=== PATIENT | female | born 1965 | race Two or more races ===

== ENCOUNTER → 2018-10-11 | Outpatient (CLI) | payer BC ==
--- NOTE | 2018-10-13 17:30 | US ---
EXAMINATION TYPE: US abdomen complete DATE OF EXAM: 10/11/2018 COMPARISON: NONE CLINICAL HISTORY: RUQ Pain R10.11 x 3 months with nausea and vomiting EXAM MEASUREMENTS: Liver Length: 19.1 cm Gallbladder Wall: 0.1 cm CBD: 0.5 cm Spleen: 8.8 cm Right Kidney: 11.0 x 4.4 x 4.6 cm Left Kidney: 10.8 x 4.0 x 4.6 cm Patient of large body habitus. Pancreas: Limited by overlying bowel gas Liver: Increased attenuation, decreased visualization of vessels suggestive of fatty infiltrate, hep atomegaly Gallbladder: cholelithiasis, no wall thickening, ARMANDO sign Evidence for sonographic Mireles's sign: no CBD: wnl Spleen: wnl Right Kidney: limited visualization due to overlying bowel gas Left Kidney: wnl Upper IVC: wnl Abd Aorta: wnl IMPRESSION: 1. Cholelithiasis. No biliary obstruction. 2. Increased attenuation of liver can be seen with fatty infiltration, hepatitis or hepatocellular di sease. Liver measures 19 cm and is enlarged.
== END | disposition home or self-care (01) ==
LOC: RADUSMAIN 15:55
PROVIDERS: ATTEND Surgery
DX: K80.20 Calculus of gallbladder without cholecystitis without obstruction (principal); R16.0 Hepatomegaly, not elsewhere classified
CPT/HCPCS: 76700

== ENCOUNTER → 2018-10-17 | Outpatient (CLI) | payer BC ==
[2018-10-17 11:07] LABS: Basophils # (A) 0.1 k/uL (0-0.2); Basophils % (A) 1 %; Eosinophils # (A) 0.2 k/uL (0-0.7); Eosinophils % (A) 3 %; HGB 13.1 gm/dL (11.4-16.0); Lymphocytes % (A) 36 %; MCH 28.5 pg (25.0-35.0); MCHC 32.8 g/dL (31.0-37.0); MCV 86.9 fL (80.0-100.0); Monocytes # (A) 0.3 k/uL (0-1.0); Monocytes % (A) 4 %; Neutrophils # (A) 4.5 k/uL (1.3-7.7); Neutrophils % (A) 55 %; Platelet Count 367 k/uL (150-450); RDW 12.6 % (11.5-15.5); WBC 8.2 k/uL (3.8-10.6)
[2018-10-17 11:21] LABS: INR 0.9 (<1.2); Partial Thromboplastin Time 26.9 sec (22.0-30.0); Prothrombin Time 9.6 sec (9.0-12.0)
[2018-10-17 16:33] LABS: Albumin 4.5 g/dL (3.80-4.90); Albumin/Globulin Ratio 1.8 (1.20-2.10); Anion Gap 10.9 mmol/L (4.00-12.00); Calcium 9.7 mg/dL (8.7-10.3); Carbon Dioxide 24.1 mmol/L (21.6-31.8); Globulin 2.5 g/dL (2.1-3.7); Potassium 4.5 mmol/L (3.5-5.5); Total Bilirubin 0.5 mg/dL (0.3-1.2)
== END | disposition home or self-care (01) ==
LOC: LABWHC1 09:41
PROVIDERS: ATTEND Surgery
DX: K81.9 Cholecystitis, unspecified (principal)
CPT/HCPCS: 36415; 80053; 85025; 85610; 85730

== ENCOUNTER 2018-10-23 10:41 | Day surgery (SDC) | payer BC ==
[2018-10-18 10:03] VITALS: BMI 33.5
[~2018-10-23 10:41] MED LIST: DEXAMETHASONE SOD PHOSPHATE 10 MG/ML 1 ML VIAL IV ONE; HEPARIN SODIUM,PORCINE 5,000 UNIT/ML 1 ML VIAL SQ ONE; LACTATED RINGERS 1,000 ML IV SCH; MIDAZOLAM 2 MG/2 ML VIAL IV PRN; SCOPOLAMINE 1.5MG/72HR PATCH TRANSDERM ONE; ceFAZolin IN SWFI 2 GM/20 ML SYRINGE IVP ONE
[2018-10-23 11:26] VITALS: RESP 16
[2018-10-23] MEDS: ONDANSETRON 4 MG/2 ML VIAL IVP ONE ×2 (11:43→15:21)
[2018-10-23] MEDS ORDERED: LIDOCAINE 1% 20 ML VIAL (10MG/ML) FOR IV START INTRADERMA ONE (11:43)
[2018-10-23] MEDS ORDERED: GLYCOPYRROLATE 0.2 MG/ML 2 ML VIAL ONE (13:01)
[2018-10-23] MEDS ORDERED: KETOROLAC 30 MG/ML 1 ML VIAL ONE (13:01)
[2018-10-23] MEDS ORDERED: NEOSTIGMINE 1 MG/ML 10 ML VIAL ONE (13:01)
[2018-10-23] MEDS ORDERED: ROCURONIUM BROMIDE 10 MG/ML 10 ML VIAL IV ONE (13:01)
[2018-10-23] MEDS ORDERED: PROPOFOL 10 MG/ML 20 ML VIAL IV ONE (13:01)
[2018-10-23] MEDS ORDERED: LIDOCAINE 1% INJ 10MG/ML (20 ML MDV) ONE (13:01)
[2018-10-23] MEDS ORDERED: fentaNYL (PF) 50 MCG/ML 2 ML AMP ONE (13:01)
[2018-10-23] MEDS ORDERED: MIDAZOLAM 2 MG/2 ML VIAL ONE (13:01)
[2018-10-23] MEDS ORDERED: BUPIVACAIN-EPI 0.25%-1:200,000 30 ML VIAL SQ ONE (13:40)
[2018-10-23] MEDS ORDERED: LACTATED RINGERS 1,000 ML IV ONE (14:14)
[2018-10-23 14:28] VITALS: TEMP 97.2
[2018-10-23] MEDS ORDERED: NALOXONE 0.4 MG/ML 1 ML VIAL IV PRN (14:33)
[2018-10-23] MEDS ORDERED: traMADol 50 MG TAB PO PRN (14:33)
[2018-10-23] MEDS: HYDROmorphone 0.5 MG/0.5 ML SYRINGE IVP PRN ×2 (14:37→14:51)
[2018-10-23] MEDS ORDERED: diphenhydrAMINE 50 MG/ML 1 ML VIAL IVP ONE (14:41)
--- NOTE | 2018-10-23 14:42 | P.OP ---
Date of Procedure: 10/23/18 Procedure(s) Performed: PREOPERATIVE DIAGNOSIS: Chronic cholecystitis POSTOPERATIVE DIAGNOSIS: Same PROCEDURE: Laparoscopic cholecystectomy SURGEON: Majo EBL: Minimal see anesthesia record ANESTHESIA: Gen. COMPLICATIONS: None OPERATIVE PROCEDURE: The patient was brought and placed on the operating room table in the supine position. The patient was placed under general anesthesia at that time. The abdomen was prepped and draped in the usual sterile fashion. A small vertical infraumbilical incision was made. The fascia was grasped with the Miguel forceps. The fascia was retracted anteriorly. The Veress needle was advanced into the peritoneal cavity. The saline drop test was normal. Insufflation took place up to 15 mmHg. A 5 mm optical trocar was advanced and the peritoneal cavity. 2 additional 5 mm trochars were placed in the right upper quadrant under direct visualization. A 12 mm trocar was advanced into the epigastric incision site. The gallbladder was retracted superiorly and laterally. The peritoneum overlying the infundibulum was bluntly dissected. The patient's cystic duct was visualized. The junction between the cystic duct common and hepatic duct was identified. The cystic duct was then divided after placement of 3 12 mm clips on the patient's side and one on the specimen side. The cystic artery was identified and clipped as well. A small vessel was seen along the gallbladder fossa and clipped as well. The gallbladder was then removed from the liver bed using electrocautery. The gallbladder was then removed from the epigastric trocar site with an Endo Catch bag. The gallbladder fossa was irrigated with saline. There was no evidence of any bleeding or biliary drainage seen. The trochars were then removed. The fascia at the 12 millimeter site was closed using a Thomas- Doug 0 Vicryl stitch. The skin at all 4 sites was closed using a 4-0 Monocryl stitch. Skin glue was utilized on the incision sites. At the end of this procedure the sponge and needle counts were correct. DISPOSITION: Stable to the recovery room
[2018-10-23 16:06] VITALS: PULSE 64
[2018-10-23 17:00] VITALS: BP 167/81
== END 2018-10-23 17:34 | disposition home or self-care (01) ==
LOC: OR 10:41
PROVIDERS: ATTEND Surgery
DX: K80.10 Calculus of gallbladder with chronic cholecystitis without obstruction (principal); M19.90 Unspecified osteoarthritis, unspecified site; Z79.1 Long term (current) use of non-steroidal anti-inflammatories (NSAID)
CPT/HCPCS: 47562; 88304; J2250; J1200; J1644; J1100; J2710; J2405; J2001; J3010; J1885; J2704; J1170

== ENCOUNTER 2019-01-07 09:23 | Day surgery (SDC) | payer BC ==
[2019-01-03 15:39] VITALS: BMI 33.6
[~2019-01-07 09:23] MED LIST changes: -DEXAMETHASONE SOD PHOSPHATE 10 MG/ML 1 ML VIAL IV ONE; -HEPARIN SODIUM,PORCINE 5,000 UNIT/ML 1 ML VIAL SQ ONE; -MIDAZOLAM 2 MG/2 ML VIAL IV PRN; -SCOPOLAMINE 1.5MG/72HR PATCH TRANSDERM ONE; -ceFAZolin IN SWFI 2 GM/20 ML SYRINGE IVP ONE
[2019-01-07 10:01] VITALS: RESP 18; TEMP 97.8
[2019-01-07] MEDS ORDERED: LIDOCAINE 1% 20 ML VIAL (10MG/ML) FOR IV START INTRADERMA ONE (10:15)
[2019-01-07] MEDS ORDERED: PROPOFOL 10 MG/ML 20 ML VIAL IV ONE (11:04)
--- NOTE | 2019-01-07 11:41 | P.PCN ---
Date of Procedure: 01/07/19 Procedure(s) Performed: Procedure: Total colonoscopy. Preoperative diagnosis: Screening for neoplasia. Postoperative diagnosis: Diverticulosis with no evidence of acute diverticulitis, strictures, polyps or cancer. Preparation: HalfLytely prep. Sedation: Was provided by anesthesia. Brief clinical history: The patient is a 53-year-old female who is scheduled for this evaluation for screening for neoplasia age being her risk factor. She has no family history of colon cancer. No significant bowel issues, bleeding or anemia. Procedure: With the patient on her left lateral decubitus position and after informed consent and adequate sedation, the perianal area was inspected and it did not show any fissures or fistulas. He were no masses felt on digital rectal examination. The Olympus CFH 190L video colonoscope was then inserted in the rectum in the usual fashion and advanced to the cecum. There were multiple diverticular orifices noted on both the left and right side with no evidence of acute diverticulitis or strictures. The mucosa appeared healthy. No polyps or tumors were seen. I retroflexed the endoscope in the rectum before the endoscope was withdrawn. Low-grade internal hemorrhoids were noted with no evidence of bleeding. The patient tolerated the procedure well. Plan: The patient was reassured. Discussed dietary measures and local care for hemorrhoids. She will follow-up with you as planned and I recommended repeat exam in 10 years.
[2019-01-07 11:50] VITALS: BP 150/83; PULSE 71
== END 2019-01-07 12:06 | disposition home or self-care (01) ==
LOC: ORWHC2ENDO 09:23
DX: Z12.11 Encounter for screening for malignant neoplasm of colon (principal); K64.8 Other hemorrhoids; K57.30 Diverticulosis of large intestine without perforation or abscess without bleeding; Z79.1 Long term (current) use of non-steroidal anti-inflammatories (NSAID)
CPT/HCPCS: J2704; G0121

== ENCOUNTER → 2019-03-31 | Outpatient (CLI) | payer BC ==
[2019-03-31 07:36] LABS: INR 0.9 (<1.2); Prothrombin Time 9.6 sec (9.0-12.0)
[2019-03-31 07:39] LABS: HCT 36.5 % (34.0-46.0); HGB 12.4 gm/dL (11.4-16.0); MCH 29.4 pg (25.0-35.0); MCHC 34.1 g/dL (31.0-37.0); MCV 86.3 fL (80.0-100.0); Mean Platelet Volume 7.5; Platelet Count 309 k/uL (150-450); RBC 4.23 m/uL (3.80-5.40); RDW 14.5 % (11.5-15.5); WBC 8.2 k/uL (3.8-10.6)
[2019-03-31 11:02] LABS: Albumin 4.3 g/dL (3.80-4.90); Albumin/Globulin Ratio 1.95 (1.60-3.17); Anion Gap 9.6 mmol/L (4.00-12.00); Calcium 9.5 mg/dL (8.7-10.3); Carbon Dioxide 27.4 mmol/L (21.6-31.8); Globulin 2.2 g/dL (1.6-3.3); LDL Cholesterol,Calculated 99.4 mg/dL (0.0-131.0); Potassium 4.3 mmol/L (3.5-5.5); Total Bilirubin 0.5 mg/dL (0.2-1.2); Total Protein 6.5 g/dL (6.2-8.2); VLDL Calculation 41.6 mg/dL (5.00-40.00)
[2019-03-31 11:10] LABS: T4, Free (Free Thyroxine) 0.9 ng/dL (0.80-1.80)
[2019-03-31 15:12] LABS: Eosinophils # (M) 0.33 k/uL (0-0.7); Lymphocytes # (M) 3.61 k/uL (1.0-4.8); Monocytes # (M) 0.33 k/uL (0-1.0); Neutrophils # (M) 3.94 k/uL (1.3-7.7); Neutrophils % (M) 48 %; Nucleated Red Blood Cells 0 /100 WBC (0-0); Total Cells Counted 100
== END | disposition home or self-care (01) ==
LOC: LABWHC1 06:57
PROVIDERS: ATTEND Family Medicine
DX: Z01.812 Encounter for preprocedural laboratory examination (principal)
CPT/HCPCS: 36415; 80053; 80061; 84439; 84443; 85027; 85610; 85730

== ENCOUNTER → 2019-04-02 | Outpatient (CLI) | payer BC | END | disposition home or self-care (01) | LOC: LABPAT 11:45 | PROVIDERS: ATTEND Orthopaedic Surgery | DX: Z01.812 Encounter for preprocedural laboratory examination (principal) | CPT/HCPCS: 87070 ==

== ENCOUNTER 2019-04-07 13:15 | Inpatient (IN) | payer BC ==
--- NOTE | 2019-04-06 21:22 | HP ---
HISTORY AND PHYSICAL Surgery is 04/07/2019. Ashlie Fletcher is a 53-year-old patient seen with symptomatic right knee osteoarthritis. We discussed treatment options with her. She elected to proceed with a right total knee arthroplasty. Consent regarding the procedure was obtained. Medical clearance was provided by Dr. Nails. PAST MEDICAL HISTORY: Noncontributory. PAST SURGICAL HISTORY: Noncontributory. DAILY MEDICATIONS: None. ALLERGIES: None reported. SOCIAL HISTORY: She denies current tobacco use. PHYSICAL EXAMINATION: Evaluation of the right knee: Range of motion 0 to 120 degrees. Tenderness along the medial joint line. Crepitus medial and patellofemoral compartments. Pain with patellofemoral compression. Ligaments stable. Hip rotation without pain. Distal neurovascular exam is intact. RADIOGRAPHS: Right knee radiographs reveal severe osteoarthritic changes. IMPRESSION: Symptomatic right knee osteoarthritis. PLAN: Right total knee arthroplasty. MMODL / IJN: [id number] /
[~2019-04-07 13:15] MED LIST changes: +ACETAMINOPHEN TAB 500 MG TAB PO ONE; -LACTATED RINGERS 1,000 ML IV SCH; +MELOXICAM 7.5 MG TAB PO ONE; +TRANEXAMIC ACID 1,000 MG in SODIUM CHLORIDE 0.9% 100 ML IVPB ONE; +ceFAZolin IN SWFI 2 GM/20 ML SYRINGE IVP ONE
[2019-04-07] MEDS ORDERED: DEXAMETHASONE SOD PHOS (MDV) 100 MG/10 ML VIAL IVP ONE (14:30)
[2019-04-07] MEDS ORDERED: ONDANSETRON 4 MG/2 ML VIAL IVP ONE ×2 (14:30→18:26)
[2019-04-07] MEDS ORDERED: LACTATED RINGERS 1,000 ML IV ONE ×3 (14:30→16:58)
[2019-04-07] MEDS ORDERED: MIDAZOLAM (PF) 2 MG/2 ML VIAL IVP ONE (14:44)
[2019-04-07] MEDS ORDERED: ROPIVACAINE 1,100 MG, SODIUM CHLORIDE 0.9% 500 ML 330 ML MISCELLANE PRN ×2 (15:05)
[2019-04-07] MEDS ORDERED: ROPIVACAINE 246.25 MG, EPINEPHrine 0.5 MG, KETOROLAC 30 MG, cloNIDine HCL/PF 80 MCG, WA... MISCELLANE ONE ×5 (15:06)
[2019-04-07] MEDS ORDERED: SODIUM CHLORIDE 0.9% 100 ML BAG ONE (15:30)
[2019-04-07] MEDS ORDERED: TRANEXAMIC ACID 1,000 MG/10 ML VIAL ONE (15:30)
[2019-04-07] MEDS ORDERED: PROPOFOL 10 MG/ML 20 ML VIAL IV ONE (15:30)
[2019-04-07] MEDS ORDERED: fentaNYL (PF) 50 MCG/ML 2 ML AMP ONE (15:30)
[2019-04-07] MEDS ORDERED: MIDAZOLAM 2 MG/2 ML VIAL ONE (15:30)
[2019-04-07] MEDS ORDERED: ceFAZolin 3,000 MG in SODIUM CHLORIDE 0.9% IRRIGATIO 3,000 ML IRRIGATION ONE (16:09)
[2019-04-07] MEDS ORDERED: HYDROmorphone 0.5 MG/0.5 ML SYRINGE IVP PRN ×2 (17:47)
[2019-04-07] MEDS ORDERED: NALOXONE 0.4 MG/ML 1 ML VIAL IV PRN (17:47)
[2019-04-07] MEDS ORDERED: ONDANSETRON 4 MG/2 ML VIAL IVP PRN (17:47)
[2019-04-07] MEDS ORDERED: HYDROcodone/APAP 5-325MG 1 EACH TAB PO PRN (17:47)
--- NOTE | 2019-04-07 17:47 | P.OP ---
Date of Procedure: 04/07/19 Preoperative Diagnosis: Right knee osteoarthritis Postoperative Diagnosis: Right knee osteoarthritis Procedure(s) Performed: Right total knee arthroplasty Implants: 1. Microport evolution MP size 4 right cemented femur 2. Microport evolution size 4 right cemented tibial baseplate 3. Microport evolution 14 mm MP polyethylene tibial insert 4. Microport advance all polyethylene 32 mm cemented patella Anesthesia: regional (Abductor canal catheter), local, spinal Surgeon: Juan Delarosa Power Line Lineman #1: Darius Tsai Estimated Blood Loss (ml): 50 Pathology: other (Bone) Condition: stable Disposition: PACU Indications for Procedure: 53-year-old patient seen with symptomatic right knee osteoarthritis. After having treatment options discussed, she elected to proceed with total knee arthroplasty. Operative Findings: See description of procedure Description of Procedure: Patient was taken to the operative suite after having an adductor canal catheter placed by the department of anesthesia for postoperative pain management. Patient underwent a spinal anesthetic by the department of anesthesia. Patient was given preoperative IV intake antibiotics and TXA. A well-padded tourniquet was placed about the right lower extremity. The lower extremity was then prepped and draped in the normal sterile orthopedic fashion. The extremity was elevated, a tourniquet was insufflated to 300. A standard anterior incision was made sharply through skin. Dissection was taken down through the subcutaneous soft tissues down to the extensor mechanism. A medial arthrotomy was performed, patella was everted and knee was flexed. There was advanced osteoarthritis noted. I introduced my distal intramedullary femoral drill. I then introduced the distal femoral cutting jig. Dagoberto MAYA secured the cutting jig with 2 pins. I held retractors in position while Dagoberto MAYA performed the distal femoral resection through the guide area we now removed her distal femoral cutting guide. We now placed our 4-in-1 femoral cutting block and positioned and it was secured with 2 pins by Dagoberto MAYA while I held the block in position. The distal femoral finishing was now completed. A proximal tibial cutting guide was positioned. I held the guide in the appropriate position with both hands well Dagoberto MAYA inserted stabilizing pins into the guide. Proximal tibial cut was made. We now placed a trial femoral component into position, along with an appropriate size tibial tray and insert. We now took the knee through range of motion and had full extension good flexion and good overall soft tissue balance noted. The patella was everted and stabilized with 2 towel clips held by Dagoberto MAYA while I performed a flush with patellar quad tendon utilizing a fresh sawblade. We templated the patella, appropriate drill holes were made. An appropriate trial patella was positioned, knee was taken through full range of motion with the patella tracking very nicely. The trial patella was removed. Drill holes were made through the femoral component. All trial components were removed after marking off the appropriate rotation of the tibia. Retractors were now positioned along the proximal tibia. An appropriate keel punch was made with the appropriate size tibial guide by myself on Dagoberto MAYA assisted by holding retractors. At this point appropriate size implants were chosen and opened. The joint was irrigated copiously with pulse lavage mechanical irrigation. The posterior capsule was infiltrated with local analgesic. The wound was irrigated with pulse lavage mechanical irrigation. We mixed antibiotic methylmethacrylate. We placed the knee into flexion. We placed multiple retractors assisted by Dagoberto MAYA to expose the proximal tibia. Once the methyl methacrylate was ready, the tibial component was cemented into place removing any excess methylmethacrylate form by both myself and Dagoberto MAYA. The femoral component was cemented into place removing the removing any excess methylmethacrylate performed by both myself and Dagoberto MAYA. We then inserted the appropriate size polyethylene tibial insert. We made sure that it was locked into position. We took the knee into full extension, and then back in a flexion making sure we had removed any excess methylmethacrylate. The patellar component was then cemented down and secured with clamp. Excess methylmethacrylate removed. We kept the knee in full extension, patellar clamp in position until methylmethacrylate had hardened. Once it had hardened the patellar clamp was removed. The knee was taken through full range of motion. The patella tracked nicely. There was good soft tissue balancing. The tourniquet was now released. Additional hemostasis was achieved via electrocautery. A second gram of TXA was given. The wound again was irrigated with pulse lavage mechanical irrigation. The superficial soft tissues were infiltrated local analgesic. The extensor mechanism was repaired with Vicryl. We checked the repair with range of motion and it was stable. The subcutaneous soft tissues were repaired with Vicryl in layers. The skin was ap proximated with pernio/Dermabond. Sterile dressings were applied followed by loose web roll and Kevyn bandage. The patient was transferred to a bed, and taken to recovery in stable and satisfactory condition. Dagoberto MAYA assisted with this complex procedure.
[2019-04-07] MEDS: HYDROmorphone 1 MG/ML 1 ML SYRINGE IVP ONE ×2 (18:08→18:14)
[2019-04-07] MEDS ORDERED: diphenhydrAMINE 50 MG/ML 1 ML VIAL IVP ONE (18:20)
[2019-04-07 19:03] LABS: Glucose,Whole Blood 200 mg/dL (75-99)
[2019-04-07] MEDS: HYDROcodone/APAP 7.5-325MG 1 EACH TAB PO PRN (20:03)
[2019-04-07 20:20] VITALS: BMI 38.9
--- NOTE | 2019-04-07 20:23 | XR ---
PROCEDURE: XR knee limited RT - 2 views DATE AND TIME: 04/07/2019 6:46 PM CLINICAL INDICATION: PHH; Evaluation for Postop abnormality and alignment TECHNIQUE: Department protocol COMPARISON: None FINDINGS: TKR appears in anatomic position and alignment. Postprocedure changes appreciated. No unexp ected findings. IMPRESSION: Postoperative 2 views.
--- NOTE | 2019-04-07 20:55 | P.ANPRN ---
Procedure Note - Anesthesia - Nerve Block Performed Right Adductor Canal Infusion Time Out Performed: Yes Date of Procedure: 04/07/19 Procedure Start Time: 14:44 Procedure Stop Time: 14:59 Location of Patient Procedure: PreOp Indication: Acute Post-Operative Pain, Requested by physician Sedation Type: Sedate with meaningful contact maintained Preparation: Sterile Prep, Sterile Dressing Position: Supine Catheter: Indwelling Needle Types: Pajunk Needle Gauge: 21 Technique: Ultrasound Injectate: 0.5% Ropivacaine (see comment for volume) (ropi .5% 20cc) Blood Aspirated: No Pain Paresthesia on Injection Noted: No Resistance on Injection: Normal Events: Uneventful and Well Tolerated
[2019-04-07] MEDS: LACTATED RINGERS 1,000 ML IV SCH (21:50)
[2019-04-07] MEDS: HYDROmorphone 1 MG/ML 1 ML SYRINGE IVP PRN (21:58)
[2019-04-07] MEDS: SENNOSIDES-DOCUSATE SODIUM 1 EACH TAB PO SCH (22:08)
[2019-04-07] MEDS: ceFAZolin IN SWFI 2 GM/20 ML SYRINGE IVP SCH (23:43)
[2019-04-08] MEDS: ENOXAPARIN 30 MG/0.3 ML SYRINGE SQ SCH ×2 (03:38→17:31)
[2019-04-08] MEDS: LACTATED RINGERS 1,000 ML IV SCH ×3 (06:08→23:22)
--- NOTE | 2019-04-08 07:02 | P.PN ---
Progress Note - Text 04/08 640am 53 yr old female s/p tkr by Dr Delarosa. she has on-q pump for postop pain control,she turned down the rate t0 4cc/hr because her foot was numb and she had difficulty walking. her pain score was 10 this morning,i asked her to increase the rate.
[2019-04-08] MEDS: HYDROcodone/APAP 7.5-325MG 1 EACH TAB PO PRN ×3 (07:33→20:50)
[2019-04-08] MEDS: MELOXICAM 7.5 MG TAB PO SCH (07:33)
[2019-04-08] MEDS: ceFAZolin IN SWFI 2 GM/20 ML SYRINGE IVP SCH (08:28)
[2019-04-08] MEDS: HYDROmorphone 1 MG/ML 1 ML SYRINGE IVP PRN ×3 (09:45→21:56)
[2019-04-08 11:15] LABS: Basophils % (A) 0 %; Eosinophils % (A) 0 %; HCT 31.7 % (34.0-46.0); HGB 10.5 gm/dL (11.4-16.0); Lymphocytes % (A) 15 %; MCH 28.8 pg (25.0-35.0); MCHC 33.2 g/dL (31.0-37.0); MCV 86.8 fL (80.0-100.0); Mean Platelet Volume 7.2; Monocytes # (A) 0.4 k/uL (0-1.0); Monocytes % (A) 3 %; Neutrophils # (A) 10.9 k/uL (1.3-7.7); Neutrophils % (A) 81 %; Platelet Count 301 k/uL (150-450); RBC 3.66 m/uL (3.80-5.40); RDW 13.3 % (11.5-15.5); WBC 13.4 k/uL (3.8-10.6)
--- NOTE | 2019-04-08 12:20 | P.PN ---
Subjective Progress Note Date: 04/08/19 Principal diagnosis: Status post right total knee arthroplasty Patient is evaluated today at bedside, she is resting comfortably in bed. She is ambulating with therapy today. She is having some increase in pain this morning, she did utilize IV pain medication. She denies any chest pain or shortness of breath. Objective - Vital Signs Vital signs: Vital Signs Temp 98.3 F 04/08/19 07:00 Pulse 81 04/08/19 07:00 Resp 16 04/08/19 07:00 BP 131/69 04/08/19 07:00 Pulse Ox 94 L 04/08/19 07:00 Intake & Output 04/07/19 04/08/19 04/08/19 18:59 06:59 18:59 Intake Total 1401 2120 Output Total 50 Balance 1351 2120 Intake: IV 1401 Intake, IV Titration 300 Amount Lactated Ringers 1,000 ml 300 @ 100 mls/hr IV .Q10H [facility] Rx#:[id number] Oral 1820 Output: Estimated Blood Loss 50 Other: Voiding Method Toilet Toilet Bedside Commode Bedside Commode # Voids 3 - Exam Right lower extremity: Incision is clean, dry, and intact. The margy is in good condition. There is minimal soft tissue swelling and ecchymosis surrounding the medial and lateral aspects of the incision. Calf is soft, no tenderness with palpation. Plantar flexion, dorsiflexion, EHL, FHL are intact. Sensory exam to light touch throughout the extremity is intact, dorsal pedis pulses 2+. - Labs CBC & Chem 7: 04/08/19 10:57 Labs: Abnormal Lab Results - Last 24 Hours (Table) 04/07/19 04/08/19 Range/Units 19:00 10:57 WBC 13.4 H (3.8-10.6) k/uL RBC 3.66 L (3.80-5.40) m/uL Hgb 10.5 L (11.4-16.0) gm/dL Hct 31.7 L (34.0-46.0) % Neutrophils # 10.9 H (1.3-7.7) k/uL POC Glucose (mg/dL) 200 H (75-99) mg/dL Assessment and Plan Plan: Assessment: Postoperative day #1 status post right total knee arthroplasty Plan: Pain control, will increase IV pain medication as needed. Plan for discharge home on oral medication GI and DVT prophylaxis, plan for discharge home on aspirin 81 mg twice a day Wound care instructions discussed Continue physical therapy Medical recommendations This patient requires further IV pain medication, plan for one additional night hospital. If patient feels better this afternoon, we'll discharge home Time with Patient: Less than 30
[2019-04-08] MEDS ORDERED: HYDROmorphone 2 MG TAB PO PRN (12:25)
--- NOTE | 2019-04-08 15:06 | P.CONS ---
History of Present Illness - Reason for Consult Consult date: 04/08/19 elevated blood sugars Requesting physician: Juan Delarosa - Chief Complaint right knee pain - History of Present Illness Patient is 53-year-old female with a past medical history of arthritis, elevated blood sugars, and obesity who presented for right total knee arthroplasty. She had failed conservative management with cortisone injections, has chronic acid, and stem cell per patient. She underwent a right total knee replacement on 04/07 without any immediate postoperative complications. Patient seen and examined at bedside. She reports that she is having some difficulty with pain control. She also reports that she has had significant postop nausea and vomiting in the past from anesthesia. She is having some nausea from [place]. She would prefer a prescription for alcohol on discharge. She reports that Dr. Wiggins started her on metformin for elevated blood sugars approximately one week ago. She states that Dr. Wiggins stated t hat she did come off of metformin after the postoperative period. She denies diagnosis of diabetes despite an A1c of 7.5. She reports since taking metformin she has had abdominal cramping, bloating, and loose stools. She denies any chest pain or shortness of breath. She states she is having significant right knee pain that has limited her mobility and ability to enjoy life. She is otherwise been unremarkable state of health. Review of Systems Pertinent positives and negatives as discussed in HPI, a complete review of systems was performed and all other systems are negative. Past Medical History Past Medical History: Osteoarthritis (OA) Additional Past Medical History / Comment(s): ARTHRITIS RIGHT KNEE , A1c 7.5 patient denies diabetes History of Any Multi-Drug Resistant Organisms: None Reported Past Surgical History: Section, Cholecystectomy, Hysterectomy Additional Past Surgical History / Comment(s): CHELSEA DIETRICH SEP 2018 Past Anesthesia/Blood Transfusion Reactions: Motion Sickness, Postoperative Nausea & Vomiting (PONV) Past Psychological History: No Psychological Hx Reported Smoking Status: Never smoker Past Alcohol Use History: None Reported Past Drug Use History: None Reported - Past Family History Mother Family Medical History: No Reported History Father Additional Family Medical History / Comment(s): , history of lung cancer and Parkinson's disease Medications and Allergies Home Medications Medication Instructions Recorded Confirmed Type Ibuprofen [Motrin] 800 mg PO TID PRN 03/31/19 04/08/19 History Aspirin [Adult Low Dose Aspirin EC] 81 mg PO BID #60 tablet. 04/08/19 Rx HYDROcodone/APAP 7.5-325MG [[place] 1 - 2 each PO Q6HR PRN #56 tab 04/08/19 Rx 7.5] traMADol HCl [Ultram] 50 mg PO Q6H PRN #28 tab 04/08/19 Rx Allergies Allergy/AdvReac Type Severity Reaction Status Date / Time adhesive AdvReac Unknown BLISTERS Verified 04/08/19 06:57 Physical Exam Osteopathic Statement: *. No significant issues noted on an osteopathic structural exam other than those noted in the History and Physical/Consult. Vitals: Vital Signs Temp Pulse Resp BP Pulse Ox 04/08/19 07:00 98.3 F 81 16 131/69 94 L 04/08/19 02:17 97.9 F 73 17 133/71 96 04/07/19 21:15 80 130/76 97 04/07/19 21:00 82 125/62 97 04/07/19 20:00 69 145/81 93 L 04/07/19 19:45 73 141/65 96 04/07/19 19:30 73 138/80 95 04/07/19 19:15 97.9 F 74 17 157/84 92 L 04/07/19 19:01 72 16 159/72 97 04/07/19 18:45 79 16 155/71 96 04/07/19 18:30 75 16 159/73 96 04/07/19 18:15 76 16 152/68 96 04/07/19 18:01 97.4 F L 79 16 154/70 95 04/07/19 15:00 74 16 159/67 99 Intake and Output 04/07/19 04/08/19 04/08/19 22:59 06:59 14:59 Intake Total 2481 640 Output Total 50 Balance 2431 640 Intake: IV 1001 Intake, IV Titration 200 100 Amount Lactated Ringers 1,000 ml 200 100 @ 100 mls/hr IV .Q10H [facility] Rx#:[id number] Oral 1280 540 Output: Estimated Blood Loss 50 Other: Voiding Method Toilet Toilet Bedside Commode # Voids 1 3 2 General: non toxic, no distress, appears at stated age, obese Derm: no unusual rashes/lesions no unusual ecchymoses, warm, dry Head: atraumatic, normocephalic, symmetric Eyes: EOMI, no lid lag, anicteric sclera, pupils equal round reactive to light ENT: Nose and ears atraumatic, no thrush, no pharyngeal erythema Neck: No thyromegaly, no cervical lymphadenopathy, trachea midline, supple Mouth: no lip lesion, mucus membranes moist Cardiovascular: S1S2 reg, no murmur, positive posterior tibial pulse bilateral, no edema, capillary refill less than 2 seconds Lungs: CTA bilateral, no rhonchi, no rales , no accessory muscle use Abdominal: soft, nontender to palpation, no guarding, no appreciable organomegaly, normal bowel sounds Ext: no gross muscle atrophy, strength 5 out of 5 in bilateral upper extremities, no contractures, Neuro: CN II-XI grossly intact, light touch intact all 4 extremities, finger to nose within normal limits, Psych: Alert, oriented, appropriate affect Results CBC & Chem 7: 04/08/19 10:57 Labs: Abnormal Lab Results - Last 24 Hours (Table) 04/07/19 04/08/19 Range/Units 19:00 10:57 WBC 13.4 H (3.8-10.6) k/uL RBC 3.66 L (3.80-5.40) m/uL Hgb 10.5 L (11.4-16.0) gm/dL Hct 31.7 L (34.0-46.0) % Neutrophils # 10.9 H (1.3-7.7) k/uL POC Glucose (mg/dL) 200 H (75-99) mg/dL Assessment and Plan Assessment: Patient is a 53-year-old female here for right total knee arthroplasty Postoperative nausea and vomiting -Zofran added his discharge medication Acute blood loss anemia -Hemoglobin an acceptable range -Anticipated outcome of surgery -Did not recommend any iron supplements, but should resolve with normal eating Diabetes mellitus type 2, patient denies - SSI, Accucheck -Resume metformin on discharge -Continue to follow with Dr. Wiggins Obesity with BMI 32.6 -Structured outpatient weight loss Patient medically optimized for discharge at the discretion of orthopedics. Thank you for allowing us to participate in the care of this patient. Do not hesitate to contact us with questions. Someone can be reached from the [facility] hospitalist group at all hours of the day at [phone].
[2019-04-08] MEDS ORDERED: HYDROmorphone 1 MG/ML 1 ML SYRINGE IVP PRN (15:39)
[2019-04-08 17:03] LABS: Glucose,Whole Blood 175 mg/dL (75-99)
[2019-04-08] MEDS: INSULIN ASPART (NovoLOG) 100 UNIT/ML VIAL SQ SCH ×2 (17:29→20:49)
[2019-04-08 19:48] LABS: Glucose,Whole Blood 184 mg/dL (75-99)
[2019-04-08] MEDS: SENNOSIDES-DOCUSATE SODIUM 1 EACH TAB PO SCH (20:50)
[2019-04-09 02:21] VITALS: RESP 17
[2019-04-09] MEDS: HYDROcodone/APAP 7.5-325MG 1 EACH TAB PO PRN ×2 (02:24→07:29)
[2019-04-09] MEDS: ENOXAPARIN 30 MG/0.3 ML SYRINGE SQ SCH (04:01)
[2019-04-09] MEDS: HYDROmorphone 1 MG/ML 1 ML SYRINGE IVP PRN (04:06)
[2019-04-09 06:59] LABS: Glucose,Whole Blood 139 mg/dL (75-99)
[2019-04-09] MEDS: MELOXICAM 7.5 MG TAB PO SCH (07:29)
[2019-04-09] MEDS: INSULIN ASPART (NovoLOG) 100 UNIT/ML VIAL SQ SCH (08:11)
[2019-04-09 08:28] VITALS: BP 132/67; PULSE 84; TEMP 98.5
--- NOTE | 2019-04-09 10:32 | P.PN ---
Subjective Progress Note Date: 04/09/19 Principal diagnosis: Status post right total knee arthroplasty Patient is evaluated today at bedside, she is resting comfortably in bed. Pain is better controlled today. She denies any chest pain or shortness of breath. Objective - Vital Signs Vital signs: Vital Signs Temp 98.5 F 04/09/19 07:22 Pulse 84 04/09/19 07:22 Resp 17 04/09/19 02:20 BP 132/67 04/09/19 07:22 Pulse Ox 95 04/09/19 07:22 Intake & Output 04/08/19 04/09/19 04/09/19 18:59 06:59 18:59 Intake Total 1080 Balance 1080 Intake: Oral 1080 Other: Voiding Method Toilet Toilet # Voids 2 2 - Exam Right lower extremity: Incision is clean, dry, and intact. The margy is in good condition. There is minimal soft tissue swelling and ecchymosis surrounding the medial and lateral aspects of the incision. Calf is soft, no tenderness with palpation. Plantar flexion, dorsiflexion, EHL, FHL are intact. Sensory exam to light touch throughout the extremity is intact, dorsal pedis pulses 2+. - Labs CBC & Chem 7: 04/08/19 10:57 Labs: Abnormal Lab Results - Last 24 Hours (Table) 04/08/19 04/08/19 04/08/19 Range/Units 10:57 17:00 19:46 WBC 13.4 H (3.8-10.6) k/uL RBC 3.66 L (3.80-5.40) m/uL Hgb 10.5 L (11.4-16.0) gm/dL Hct 31.7 L (34.0-46.0) % Neutrophils # 10.9 H (1.3-7.7) k/uL POC Glucose (mg/dL) 175 H 184 H (75-99) mg/dL 04/09/19 Range/Units 06:57 WBC (3.8-10.6) k/uL RBC (3.80-5.40) m/uL Hgb (11.4-16.0) gm/dL Hct (34.0-46.0) % Neutrophils # (1.3-7.7) k/uL POC Glucose (mg/dL) 139 H (75-99) mg/dL Assessment and Plan Plan: Assessment: Postoperative day #2 status post right total knee arthroplasty Plan: Pain control, plan for discharge home on oral medication GI and DVT prophylaxis, plan for discharge home on aspirin 81 mg twice a day Wound care instructions discussed Continue physical therapy Medical recommendation Discharge home today Time with Patient: Less than 30
--- NOTE | 2019-04-09 10:32 | P.DS ---
Providers Date of admission: 04/08/19 05:58 Expected date of discharge: 04/08/19 Attending physician: Juan Delarosa Consults: 04/07/19 17:47 Consult Physician Stat Consulting Provider: Madeline Ma Consult Reason/Comments: Medical management Do you want consulting provider notified?: Yes Primary care physician: [facility] Course: Date of admission: 04/07/2019 Date of discharge: 04/09/2019 Admission diagnosis: Status post right total knee arthroplasty Discharge diagnosis: Same Attending physician: Dr. Delarosa Surgical procedures: Right total knee arthroplasty Brief history: Patient is a 53-year-old female with a history of with progressive primary right knee osteoarthritis . Patient has failed conservative treatment measures and has opted to proceed with a elective right total knee arthroplasty. Hospital course: Details of patient's surgery can be found in operative report. Patient tolerated the procedure well and was subsequently transported to orthopedic floor. Patient's orthopeidc and medical care was provided daily. Patient had daily laboratory tests performed for evaluation of overall blood counts. Patient had daily physical therapy to include strengthening range of motion as well as education with walker ambulation. Patient had daily CPM usage as part of their physical therapy program. Patient was treated with Lovenox for their postoperative DVT prophylaxis during their inpatient stay. Patient was noted to have a relatively uneventful postoperative course. Patient reported satisfactory pain control with oral pain medications by postoperative day 0. Patient showed satisfactory progress with physical therapy. Patient moved steadily through the program and had no difficulty meeting the goals by postoperative day 2. Given patient's otherwise satisfactory course and having met physical therapy goals, plan is to discharge patient home on postoperative day 2. Discharge condition/disposition: Patient will be discharged home in stable condition. Discharge medications: Instructions are given on resumption of patient's normal daily medications per primary care recommendation, in addition patient will be prescribed [place] 7.5 mg/325 mg, tramadol 50 mg, aspirin 81 mg. Discharge instructions: 1. Wound care and infection precautions, keep incision dry and covered while showering, no lotions, creams, moisturizers. No soaking, tubs, pools, hottubs. Do not scrub over the incision. 2. Weight-bear as tolerated with walker / cane until follow-up. 3. Ice and elevate when necessary. Do not exceed 20 minutes per hour with ice pack. 4. Utilize compression sleeve until seen at first follow up appointment. 5. Visiting nursing care. 6. Home physical therapy including home CPM. 7. Pain meds and anticoagulants per prescription. 8. Pain medication has potential to cause constipation. Increase oral fluid and fiber intake. Contact primary care provider if you have not had a bowel movement within 48 hours after discharge 9. No anti-inflammatory medication until discussed at first post operative visit, this including Motrin, Aleve, Mobic, Diclofenac. 10. Follow up in office at 2 weeks postop with Dagoberto Tsai PA-C 11. Follow up with your primary care doctor 7-10 days after discharge. 12. Contact [facility] with any questions, . Procedures: Right total knee arthroplasty Patient Condition at Discharge: Good Plan - Discharge Summary Discharge Rx Participant: Yes New Discharge Prescriptions: New Aspirin [Adult Low Dose Aspirin EC] 81 mg PO BID #60 tablet. HYDROcodone/APAP 7.5-325MG [[place] 7.5] 1 - 2 each PO Q6HR PRN #56 tab PRN Reason: Pain traMADol HCl [Ultram] 50 mg PO Q6H PRN #28 tab PRN Reason: Pain Ondansetron [Zofran] 4 mg PO Q8HR PRN #30 tab PRN Reason: Nausea And Vomiting Discontinued Ibuprofen [Motrin] 800 mg PO TID PRN PRN Reason: Pain Discharge Medication List Aspirin [Adult Low Dose Aspirin EC] 81 mg PO BID #60 tablet. 04/08/19 [Rx] HYDROcodone/APAP 7.5-325MG [[place] 7.5] 1 - 2 each PO Q6HR PRN #56 tab 04/08/19 [Rx] Ondansetron [Zofran] 4 mg PO Q8HR PRN #30 tab 04/08/19 [Rx] traMADol HCl [Ultram] 50 mg PO Q6H PRN #28 tab 04/08/19 [Rx] Follow up Appointment(s)/Referral(s): Olga Wiggins MD [Primary Care Provider] - 1 [facility], [NON-STAFF] - Darius Tsai PAC [PHYSICIAN [employer] [facility]] - 04/23/19 10:50 am Activity/Diet/Wound Care/Special Instructions: *Please call [facility] once home to arrange delivery of continuous passive motion (CPM) machine: [phone] [facility] will deliver walker to bedside prior to discharge Orthopedic Discharge Instructions: 1. Wound care and infection precautions, keep incision dry and covered while showering, no lotions, creams, moisturizers. No soaking, pools, hot tubs. Do not scrub over incision. 2. Weight-bear as tolerated with walker / cane until follow-up. 3. Ice and elevate when necessary. Do not exceed 20 minutes per hour with ice pack. 4. Utilize compression sleeve until seen at first follow up appointment. 5. Pain meds and anticoagulants per prescription. 6. Pain medication has potential to cause constipation. Increase oral fluid and fiber intake. Contact primary care provider if you have not had a bowel movement within 48 hours after discharge. 7. No anti-inflammatory medication until discussed at first post operative visit, this including Motrin, Aleve, Mobic, Diclofenac. 8. Follow up in office at 2 weeks postop with Dagoberto Tsai PA-C 9. Follow up with your primary care doctor 7-10 days after discharge. 10. Contact [facility] with any questions, . Resume your home metformin dose. .
--- NOTE | 2019-04-09 11:53 | P.PN ---
Subjective Progress Note Date: 04/09/19 Patient seen and examined at bedside doing well reports her pain is adequately controlled. Has no other complaints today Objective - Vital Signs Vital signs: Vital Signs Temp 98.5 F 04/09/19 07:22 Pulse 84 04/09/19 07:22 Resp 17 04/09/19 02:20 BP 132/67 04/09/19 07:22 Pulse Ox 95 04/09/19 07:22 Intake & Output 04/08/19 04/09/19 04/09/19 18:59 06:59 18:59 Intake Total 1080 Balance 1080 Intake: Oral 1080 Other: Voiding Method Toilet Toilet # Voids 2 2 - Exam Constitutional: No acute distress, conversant, pleasant Eyes: Anicteric sclerae, moist conjunctiva, no lid-lag, PERRLA ENMT: NC/AT,Oropharynx clear, no erythema, exudates Neck:Supple, FROM, no masses, or JVD, No carotid bruits; No thyromegaly Lungs: Clear to auscultation, Clear to percussion, Normal respiratory effort, no accessory muscle use Cardiovascular: Heart regular in rate and rhythm, No murmurs, gallops, or rubs no peripheral edema Abdominal: Soft Nontender, nom distended, no guarding, no rebound or rigidity, Normoactive bowel sounds No hepatomegaly, No splenomegaly, No palpable mass No abdominal wall hernia noted Skin: Incision clean dry and intact skin margy in good position and minimal circumferential soft tissue swelling and ecchymosis around incision site Extremities:No digital cyanosis No clubbing, Pedal pulses intact and symmetrical Radial pulses intact and symmetrical Normal gait and station, No calf tenderness Psychiatric: Alert and oriented to person, place and time, Appropriate affect Intact judgement Neuro: Muscles Strength 5/5 in all 4 extremities, Sensation to light touch grossly present throughout, Cranial nerves II-XII grossly intact. No focal sensory deficits - Labs CBC & Chem 7: 04/08/19 10:57 Labs: Abnormal Lab Results - Last 24 Hours (Table) 04/08/19 04/08/19 04/08/19 Range/Units 10:57 17:00 19:46 WBC 13.4 H (3.8-10.6) k/uL RBC 3.66 L (3.80-5.40) m/uL Hgb 10.5 L (11.4-16.0) gm/dL Hct 31.7 L (34.0-46.0) % Neutrophils # 10.9 H (1.3-7.7) k/uL POC Glucose (mg/dL) 175 H 184 H (75-99) mg/dL 04/09/19 Range/Units 06:57 WBC (3.8-10.6) k/uL RBC (3.80-5.40) m/uL Hgb (11.4-16.0) gm/dL Hct (34.0-46.0) % Neutrophils # (1.3-7.7) k/uL POC Glucose (mg/dL) 139 H (75-99) mg/dL Assessment and Plan Plan: Postoperative nausea and vomiting -Viki added his discharge medication Acute blood loss anemia -Hemoglobin an acceptable range -Anticipated outcome of surgery -Did not recommend any iron supplements, but should resolve with normal eating Diabetes mellitus type 2, patient denies - SSI, Accucheck -Resume metformin on discharge -Continue to follow with Dr. Wiggins Obesity with BMI 32.6 -Structured outpatient weight loss Patient medically optimized for discharge at the discretion of orthopedics, we'll sign off today
== END 2019-04-09 11:09 | disposition home health service (06) | DRG 470 ==
LOC: OR 13:15 → 4SSUR 18:14 → OR 04-08 06:15 → OBSVTOIN 04-08 13:34
PROVIDERS: ADMIT Orthopaedic Surgery; ATTEND Orthopaedic Surgery
PROC: 0SRC0J9 Replacement of Right Knee Joint with Synthetic Substitute, Cemented, Open Approach (ICD-10-PCS; principal; 2019-04-07 15:40)
DX: M17.11 Unilateral primary osteoarthritis, right knee (principal); D62 Acute posthemorrhagic anemia; E11.9 Type 2 diabetes mellitus without complications; R11.2 Nausea with vomiting, unspecified; E66.9 Obesity, unspecified; Z68.32 Body mass index [BMI] 32.0-32.9, adult; Z79.82 Long term (current) use of aspirin; Z71.3 Dietary counseling and surveillance; Z90.49 Acquired absence of other specified parts of digestive tract; Z90.710 Acquired absence of both cervix and uterus; Z98.891 History of uterine scar from previous surgery; Z91.048 Other nonmedicinal substance allergy status; Z82.0 Family history of epilepsy and other diseases of the nervous system; Z80.1 Family history of malignant neoplasm of trachea, bronchus and lung
CPT/HCPCS: 85025; 88300

== ENCOUNTER → 2019-05-12 | Outpatient (CLI) | payer BC ==
--- NOTE | 2019-05-13 10:14 | MM ---
Reason for exam: screening (asymptomatic). Last mammogram was performed 7 years and 5 months ago. History: Patient is postmenopausal. Took hormonal contraceptives for 8 years beginning at age 16. Physical Findings: A clinical breast exam by your physician is recommended on an annual basis and results should be correlated with mammographic findings. MG 3D Screening Mammo W/Cad Bilateral CC and MLO view(s) were taken. Prior study comparison: December 05, 2011, mammogram. November 24, 2011, mammogram. The breast tissue is heterogeneously dense. This may lower the sensitivity of mammography. Finding: There are typically benign dystrophic, round, linear calcifications in both breasts, greater in the left breast. There is a chronic nodularity in the left breast. There is no discrete abnormality. ASSESSMENT: Benign, BI-RAD 2 RECOMMENDATION: Routine screening mammogram of both breasts in 1 year.
== END | disposition home or self-care (01) ==
LOC: RADMAMWWP 09:14
PROVIDERS: ATTEND Family Medicine
DX: Z12.31 Encounter for screening mammogram for malignant neoplasm of breast (principal)
CPT/HCPCS: 77063; 77067

== ENCOUNTER → 2021-09-29 | Outpatient (CLI) | payer BC ==
--- NOTE | 2021-09-29 08:05 | US ---
EXAMINATION TYPE: US abdomen complete DATE OF EXAM: 09/29/2021 COMPARISON: NONE CLINICAL HISTORY: R10.11 Right Upper Quad Pain R10.9 Right Flank Caroline. RUQ pain, right flank pain, cho lecystectomy EXAM MEASUREMENTS: Liver Length: 17.1 cm Gallbladder Wall: Surgically absent CBD: 0.5 cm Spleen: 9.2 cm Right Kidney: 10.2 x 3.7 x 4.4 cm Left Kidney: 10.6 x 4.9 x 4.7 cm technical limitations due to large amount of overlying bowel content Pancreas: Tail obscured by overlying bowel gas Liver: attenuating Gallbladder: Surgically absent Evidence for sonographic Mireles's sign: no CBD: wnl Spleen: wnl Right Kidney: no evidence of hydronephrosis Left Kidney: no evidence of hydronephrosis Upper IVC: wnl Abd Aorta: wnl The intrahepatic portion of the IVC and proximal abdominal aorta are within normal limits. Common bi le duct is unremarkable. The visualized portions of the pancreas are homogenous. The spleen is unre markable. Kidneys are symmetric and free of hydronephrosis. No renal lesions are seen. IMPRESSION: Fatty liver.
--- NOTE | 2021-09-29 08:26 | US ---
EXAMINATION TYPE: US pelvic complete DATE OF EXAM: 09/29/2021 COMPARISON: NONE CLINICAL HISTORY: R10.11 Right Upper Quad Pain R10.9 Right Flank Caroline. right flank pain for 2 years. p artial hysterectomy 2006 TECHNIQUE: Transabdominal (TA) Date of LMP: unknown EXAM MEASUREMENTS: Uterus: Surgically absent Endometrial Stripe: Surgically absent Right Ovary: unable to visualize Left Ovary: unable to visualize 1. Uterus: Surgically absent. vaginal cuff = 0.9cm 2. Endometrium: Surgically absent 3. Right Ovary: Obscured by overlying bowel gas 4. Left Ovary: Obscured by overlying bowel gas 5. Bilateral Adnexa: appears wnl IMPRESSION: Unremarkable postoperative pelvis.
== END | disposition home or self-care (01) ==
LOC: RADUSWWP 06:59
PROVIDERS: ATTEND Family Medicine
DX: K76.0 Fatty (change of) liver, not elsewhere classified (principal); Z90.711 Acquired absence of uterus with remaining cervical stump
CPT/HCPCS: 76700; 76856

== ENCOUNTER → 2023-03-09 | Outpatient (CLI) | payer BC ==
--- NOTE | 2023-03-12 18:40 | MM ---
Reason for Exam: Screening (asymptomatic). Last mammogram was performed 3 year(s) and 10 month(s) ago. Patient History: Menarche at age 11. First Full-Term at age 22. Postmenopausal. Hormonal Contraceptives, from age 16 until age 22. Risk Values: Dolly 5 year model risk: 1.2%. NCI Lifetime model risk: 6.7%. Prior Study Comparison: 11/24/2011 Screening Mammogram, Unknown. 12/05/2011 Screening Mammogram, Unknown. 05/12/2019 Bilateral Screening Mammogram, [facility]. Tissue Density: There are scattered fibroglandular densities. Findings: Analyzed By CAD. After symmetrical and stable. There are stable focal asymmetries in the outer bilateral breasts. No suspicious groups of microcalcifications, spiculated or lobular masses, architectural distortion or other secondary signs of malignancy are mammographically apparent. Overall Assessment: Benign, BI-RAD 2 Management: Screening Mammogram of both breasts in 1 year. A negative mammogram report should not preclude additional follow up of suspicious palpable abnormalities. Patient should continue monthly self breast exam. A clinical breast exam by your physician is recommended on an annual basis and results should be correlated with mammographic findings. Electronically signed and approved by: Fernando Martino D.O. Radiologis
== END | disposition home or self-care (01) ==
LOC: RADMAMWWP 15:06
PROVIDERS: ATTEND Family Medicine
DX: Z12.31 Encounter for screening mammogram for malignant neoplasm of breast (principal); Z78.0 Asymptomatic menopausal state
CPT/HCPCS: 77063; 77067

== ENCOUNTER → 2023-07-04 | Outpatient (CLI) | payer BC ==
--- NOTE | 2023-07-04 21:16 | MR ---
EXAMINATION TYPE: MR lumbar spine wo con DATE OF EXAM: 07/04/2023 8:39 PM CLINICAL INDICATION:Female, 57 years old with history of M47.26 Lumbar spondylosis with radiculopathy , low back pain.; PHH, Low back pain that radiates down right leg. COMPARISON: None TECHNIQUE: Multi planar, multi sequence imaging was performed utilizing: T1-weighted, T2-weighted, a nd turbo inversion recovery imaging of the lumbar spine. IV Contrast: None. FINDINGS: Alignment: The lumbar vertebral bodies have preserved heights with grade 1 anterolisthesis of L4 on L 5. Cord: The conus medullaris and the distal spinal cord appear unremarkable with regards to their signa l intensity and morphology. Bones/Discs: Mild degeneration changes with scattered osteophytes and facet joint arthropathy. Disc s ignal is grossly maintained. Modic endplate changes at T10-T11. There is disc space narrowing at this level. Scattered disc desiccation. T12-L1: No evidence of significant spinal canal stenosis or neural foraminal stenosis. L1-L2: No evidence of significant spinal canal stenosis or neural foraminal stenosis. L2-L3: No evidence of significant spinal canal stenosis or neural foraminal stenosis. L3-L4: No evidence of significant spinal canal stenosis or neural foraminal stenosis. L4-L5: No evidence of significant spinal canal stenosis. Facet joint arthropathy mild bilateral neura l foraminal stenosis. L5-S1: Right central disc extrusion with inferior migration measuring up to 9 mm . This abuts the exi ting and forming nerves that will exit at S1 and S2. No significant spinal canal or neural foraminal stenosis in the remainder of the visualized levels. Other findings: None. IMPRESSION: 1. L5-S1 right central disc extrusion with inferior migration which abuts and displaces the forming/ exiting right S1-S2 nerves. 2. Minimal multilevel degeneration. 3. Mild grade 1 anterolisthesis of L4 and L5.
== END | disposition home or self-care (01) ==
LOC: RADMRIMAIN 18:36
PROVIDERS: ATTEND Orthopaedic Surgery
DX: M51.17 Intervertebral disc disorders with radiculopathy, lumbosacral region (principal); M47.26 Other spondylosis with radiculopathy, lumbar region; M43.16 Spondylolisthesis, lumbar region
CPT/HCPCS: 72148

== ENCOUNTER → 2024-04-09 | Outpatient (CLI) | payer BC ==
--- NOTE | 2024-04-10 15:57 | CA ---
Transthoracic Echo Report Name: Ashlie Fletcher Age: 58 Gender: F : 1965 Exam Date: 04/09/2024 16:42 Exam Location: [place] Echo Ht (in): 62 Wt (lb): 190 Ordering Physician: Olga Wiggins MD Attending/Referring Phys: Sanitarian Sloane Thompson RDCS Procedure CPT: Indications: R01.1 cardiac murmur Cardiac Hx: Technical Quality: Fair Contrast 1: Total Dose (mL): Contrast 2: Total Dose (mL): MEASUREMENTS (Male / Female) Normal Values 2D ECHO LV Diastolic Diameter PLAX 5.3 cm 4.2 - 5.9 / 3.9 - 5.3 cm LV Systolic Diameter PLAX 3.4 cm IVS Diastolic Thickness 1.0 cm 0.6 - 1.0 / 0.6 - 0.9 cm LVPW Diastolic Thickness 0.8 cm 0.6 - 1.0 / 0.6 - 0.9 cm LV Relative Wall Thickness 0.4 LVOT Diameter 1.9 cm LV Diastolic Volume MOD BP 103.9 cm??? 67 - 155 / 56 - 104 cm??? LV Systolic Volume MOD BP 33.7 cm??? 22 - 58 / 19 - 49 cm??? LV Ejection Fraction MOD BP 67.6 % >= 55 % LV Cardiac Index MOD BP 2766.0 cm???/min???m??? LV Diastolic Volume MOD 4C 102.4 cm??? LV Systolic Volume MOD 4C 34.0 cm??? LV Ejection Fraction MOD 4C 66.8 % LV Cardiac Index MOD 4C 2694.2 cm???/min???m??? LV Diastolic Length 4C 7.8 cm LV Systolic Length 4C 6.7 cm LV Diastolic Volume MOD 2C 104.0 cm??? LV Systolic Volume MOD 2C 33.2 cm??? LV Ejection Fraction MOD 2C 68.1 % LV Cardiac Index MOD 2C 2787.3 cm???/min???m??? LV Diastolic Length 2C 7.7 cm LV Systolic Length 2C 6.7 cm LA Volume 41.3 cm??? 18 - 58 / 22 - 52 cm??? LA Volume Index 20.8 cm???/m??? 16 - 28 cm???/m??? Ascending Aorta Diameter 3.2 cm DOPPLER AV Peak Velocity 129.6 cm/s AV Peak Gradient 6.7 mmHg AV Mean Gradient 4.2 mmHg AV Velocity Time Integral 27.8 cm LVOT Peak Velocity 100.0 cm/s LVOT Peak Gradient 4.0 mmHg LVOT Velocity Time Integral 18.5 cm LVOT Stroke Volume 53.5 cm??? LVOT Stroke Volume Index 28.6 ml/m??? LVOT Cardiac Index 2106.2 cm???/min???m??? AV Area Cont Eq vti 1.9 cm??? AV Area Cont Eq pk 2.2 cm??? Mitral E Point Velocity 57.5 cm/s Mitral A Point Velocity 63.1 cm/s Mitral E to A Ratio 0.9 MV Deceleration Time 165.9 ms PV Peak Velocity 152.7 cm/s PV Peak Gradient 9.3 mmHg FINDINGS Left Ventricle Left ventricular ejection fraction is estimated at 60-65 %. Mildly increased septal wall thickness. Left ventricular cavity size normal. Left ventricular wall thickness normal. No obvious regional wall motion abnormalities. Right Ventricle Normal right ventricular size and function. Unable to estimate the right ventricular systolic pressure. Right Atrium Normal right atrial size. Left Atrium Normal left atrial size. Mitral Valve Structurally normal mitral valve. No mitral stenosis, regurgitation or prolapse. Aortic Valve Trileaflet aortic valve. No aortic valve stenosis or regurgitation. Tricuspid Valve Structurally normal tricuspid valve. No tricuspid stenosis. Trace tricuspid regurgitation. Pulmonic Valve Structurally normal pulmonic valve. No pulmonic stenosis. No pulmonic regurgitation. Pericardium No pericardial effusion. Prominent epicardial fat. Aorta Normal size aortic root and proximal ascending aorta. CONCLUSIONS Normal LV size and function Previewed by: Dr. Marin Pool MD (Electronically Signed) Final Date: 10 April 2024 15:56
== END | disposition home or self-care (01) ==
LOC: RADMAMWWP 15:54
PROVIDERS: ATTEND Family Medicine
DX: Z12.31 Encounter for screening mammogram for malignant neoplasm of breast (principal); R01.1 Cardiac murmur, unspecified
CPT/HCPCS: 77063; 77067; 93306